=== PATIENT | male | born 1955 | race American Indian/Alaskan Native ===

== ENCOUNTER 2017-11-08 12:14 | Emergency (ER) | payer MEDICARE ==
[~2017-11-08] VITALS: Ht 167.6 cm; Wt 77.1 kg
[~2017-11-08 12:14] MED LIST: BIOFLEX; BP MED; CEPH500 PO; CHLO25B PO; CITA20 PO; CLOB.05TC; CRUTCH3 USE; CYAN500 PO; CYCL10; CYCL10 PO; DICL25ER PO; DIPH50; DOCU100 PO; DOXY100 PO; FLUO20; HYDMOR2; IBUP600; IBUP800; KETO10; KETO10 PO; MELO7.5 PO; MULVITA; NAPR550; NAPR550 PO; NIAC250ER PO; OXYACE5T PO; PENVK250 PO; PENVK500 PO; POTCHL20ER PO; PRAZ1 PO; PRAZ2; PRED20 PO; RANI150 PO; RXCLIN PO; RXPENVK250 PO; SULTRIDS PO; TAMS.4ER PO; TRIA80TC TOP; VARE1; VITB100; VITS; [UNRECOGNIZED DRUG - OTHER]; [UNRECOGNIZED DRUG - OTHER]
== END 2017-11-08 14:10 | disposition home or self-care (01) ==
LOC: ER 12:14
DX: G89.29 Other chronic pain (principal); M54.2 Cervicalgia; Z88.5 Allergy status to narcotic agent; Z79.899 Other long term (current) drug therapy; F43.10 Post-traumatic stress disorder, unspecified; F17.200 Nicotine dependence, unspecified, uncomplicated
CPT/HCPCS: 96372; 99283; J1885

== ENCOUNTER 2017-12-15 09:51 | Emergency (ER) | payer MEDICARE ==
[~2017-12-15] VITALS: Ht 170.2 cm; Wt 74.8 kg
== END 2017-12-15 10:40 | disposition home or self-care (01) ==
LOC: ER 09:51
DX: M25.572 Pain in left ankle and joints of left foot (principal); Z88.5 Allergy status to narcotic agent; Z79.899 Other long term (current) drug therapy; F43.10 Post-traumatic stress disorder, unspecified; F17.200 Nicotine dependence, unspecified, uncomplicated
CPT/HCPCS: 96372; 99283; J1885

== ENCOUNTER 2018-02-17 02:19 | Emergency (ER) | payer MEDICARE ==
[~2018-02-17] VITALS: Ht 170.2 cm; Wt 78.0 kg
[2018-02-17] MEDS ORDERED: ACET500 PO (02:39)
== END 2018-02-17 04:20 | disposition home or self-care (01) ==
LOC: ER 02:19
DX: S16.1XXA Strain of muscle, fascia and tendon at neck level, initial encounter (principal); S43.401A Unspecified sprain of right shoulder joint, initial encounter; S13.4XXA Sprain of ligaments of cervical spine, initial encounter; S00.83XA Contusion of other part of head, initial encounter; V29.9XXA Motorcycle rider (driver) (passenger) injured in unspecified traffic accident, initial encounter; F17.200 Nicotine dependence, unspecified, uncomplicated; Z88.5 Allergy status to narcotic agent; Z79.899 Other long term (current) drug therapy
CPT/HCPCS: 72125; 73030

== ENCOUNTER 2018-02-18 11:21 | Emergency (ER) | payer MEDICARE ==
[~2018-02-18] VITALS: Ht 170.2 cm; Wt 78.0 kg
[~2018-02-18 11:21] MED LIST changes: +ACET500 PO
== END 2018-02-18 12:32 | disposition home or self-care (01) ==
LOC: ER 11:21
DX: S00.81XA Abrasion of other part of head, initial encounter (principal); M54.2 Cervicalgia; M25.511 Pain in right shoulder; F17.200 Nicotine dependence, unspecified, uncomplicated; Z88.5 Allergy status to narcotic agent; V29.9XXA Motorcycle rider (driver) (passenger) injured in unspecified traffic accident, initial encounter
CPT/HCPCS: 96372; 99283; J1885

== ENCOUNTER 2019-02-23 14:43 | Emergency (ER) | payer OTHER ==
[~2019-02-23] VITALS: Ht 167.6 cm; Wt 74.0 kg
[2019-02-23] MEDS ORDERED: DIBU30TO PR (15:18)
[2019-03-25] MEDS ORDERED: Voltaren100 GM TOP (12:22)
[2019-03-25] MEDS ORDERED: HYDCOR2.5C PR (12:22)
[2019-03-25] MEDS ORDERED: VITAMIN B-121000 MCG PO (12:22)
[2019-03-25] MEDS ORDERED: ACET500 PO (12:22)
== END 2019-02-23 15:24 | disposition home or self-care (01) ==
LOC: ER 14:43
DX: K64.5 Perianal venous thrombosis (principal); Z88.5 Allergy status to narcotic agent; F17.200 Nicotine dependence, unspecified, uncomplicated
CPT/HCPCS: 99283

== ENCOUNTER 2019-03-18 13:17 | Emergency (ER) | payer OTHER ==
[~2019-03-18] VITALS: Ht 170.2 cm; Wt 84.4 kg
[~2019-03-18 13:17] MED LIST changes: +DIBU30TO PR
[2019-03-18 14:07] LABS: BASOPHILS ABSOLUTE AUTO 0.06 K/mm3 (0.00-0.23); BASOPHILS PERCENT AUTO 1 % (0-2); EOSINOPHILS ABSOLUTE AUTO 0.29 K/mm3 (0.00-0.68); EOSINOPHILS PERCENT AUTO 4 % (0-6); Hematocrit 46.1 % (37.0-53.0); Hemoglobin 15.6 g/dL (13.5-17.5); IMMATURE GRAN ABSOLUTE AUTO 0.03 K/mm3 (0.00-0.10); IMMATURE GRAN PERCENT AUTO 0 % (0-1); LYMPHOCYTES ABSOLUTE AUTO 1.64 K/mm3 (0.84-5.20); LYMPHOCYTES PERCENT AUTO 22 % (21-46); MONOCYTES ABSOLUTE AUTO 0.64 K/mm3 (0.16-1.47); MONOCYTES PERCENT AUTO 8 % (4-13); Mean Corpuscular HGB 31.5 pg (26.0-34.0); Mean Corpuscular HGB Conc 33.8 g/dL (31.5-36.5); Mean Corpuscular Volume 93 fL (80-100); Mean Platelet Volume 9.7 fL (9.1-12.4); NEUTROPHILS ABSOLUTE AUTO 4.94 K/mm3 (1.96-9.15); NEUTROPHILS PERCENT AUTO 65 % (41-73); Platelet Count 262 K/mm3 (150-400); RDW Coefficient Variation 13.2 % (11.7-14.2); RDW Standard Deviation 44.5 fL (35.1-46.3); Red Blood Cell Count 4.95 M/mm3 (4.30-5.90)
[2019-03-18 14:26] LABS: Alanine Aminotransfer (ALT/SGP 19 U/L (12-78); Albumin, Blood 3.9 g/dL (3.4-5.0); Albumin/Globulin Ratio 1.1 (0.8-1.8); Alk Phos 64 U/L (50-136); Anion Gap 6 mmol/L (6-16); Aspartate Aminotrans (AST/SGOT 16 U/L (12-37); Bilirubin, Total 0.6 mg/dL (0.1-1.0); Blood Urea Nitrogen 17 mg/dL (8-24); CO2, Blood 26 mmol/L (21-32); Calcium, Blood 9.4 mg/dL (8.5-10.1); Chloride, Blood 108 mmol/L (98-108); Creatinine, Blood 0.77 mg/dL (0.60-1.20); Globulin, Blood 3.5 g/dL (2.2-4.0); Glomerular Filtration Rate >60 (60-); Glucose, Blood 100 mg/dL (70-99); Sodium, Blood 140 mmol/L (136-145); Total Protein, Blood 7.4 g/dL (6.4-8.2)
[2019-03-18 16:40] LABS: Source, Urine Clean Catch
[2019-03-18 16:45] LABS: Bilirubin, Urine Neg (Neg); Blood, Urine 2+ (Neg); Glucose Qualitative, Urine Neg (Neg); Ketones, Urine Neg (Neg); Leukocyte Esterase, Urine Neg (Neg); Nitrite, Urine Neg (Neg); Protein, Urine Neg (Neg); Specific Gravity, Urine 1.015 (1.003-1.022); Urobilinogen, Urine NORM (Normal); pH, Urine 6.5 (5.0-8.0)
[2019-03-18 16:58] LABS: Appearance, Urine Clear (Clear); Color, Urine Yellow (P-Yellow)
[2019-03-18 17:00] LABS: Bacteria Not Seen /hpf; Red Blood Cells, Urine 0-2 /hpf (0-2); Squamous Epithelial Cells Not Seen /hpf (Few); White Blood Cells, Urine 0-2 /hpf (0-5)
[2019-03-18] MEDS ORDERED: Tylenol325 MG PO (17:05)
[2019-03-18] MEDS ORDERED: KETO10 PO (17:05)
[2019-03-25] MEDS ORDERED: VITAMIN B-121000 MCG PO (12:22)
[2019-03-25] MEDS ORDERED: ACET500 PO (12:22)
[2019-03-25] MEDS ORDERED: Voltaren100 GM TOP (12:22)
[2019-03-25] MEDS ORDERED: HYDCOR2.5C PR (12:22)
== END 2019-03-18 17:30 | disposition home or self-care (01) ==
LOC: ER 13:17
PROVIDERS: Physician Assistant
DX: K64.4 Residual hemorrhoidal skin tags (principal); Z88.5 Allergy status to narcotic agent; Z79.899 Other long term (current) drug therapy; F17.200 Nicotine dependence, unspecified, uncomplicated
CPT/HCPCS: 36415; 80053; 81001; 83690; 85025; 99283

== ENCOUNTER → 2019-03-20 | Outpatient (CLI) | payer OTHER ==
[~2019-03-20] MED LIST changes: +Bactrim Ds Tab1 EACH PO; +Benadryl Itch28.3 G1 TOP; +GABA100 PO; +HYDCOR2.5C PR; +IBUP800 PO; +Tylenol325 MG PO; +VITAMIN B-121000 MCG PO; +Voltaren100 GM TOP
[2019-03-20 13:40] LABS: Adenovirus F 40/41 Not Detected (NOT DETECT); Astrovirus Not Detected (NOT DETECT); Campylobacter Sp Not Detected (NOT DETECT); Cryptosporidium Not Detected (NOT DETECT); Cyclospora Cayetanensis Not Detected (NOT DETECT); E. Coli O157 Not Detected (NOT DETECT); Entamoeba Histolytica Not Detected (NOT DETECT); Enteroaggregative E. coli-EAEC Not Detected (NOT DETECT); Enteropathogenic E. coli-EPEC Detected (NOT DETECT); Enterotoxigenic E. coli-ETEC Not Detected (NOT DETECT); Giardia Lamblia Not Detected (NOT DETECT); Norovirus GI/GII Not Detected (NOT DETECT); Plesiomonas Shigelloides Not Detected (NOT DETECT); Rotavirus A Not Detected (NOT DETECT); Salmonella Sp Not Detected (NOT DETECT); Sapovirus Not Detected (NOT DETECT); Shiga Toxin-prod E. coli-STEC Not Detected (NOT DETECT); Shigella/Enteroin E. coli-EIEC Not Detected (NOT DETECT); Vibrio Cholerae Not Detected (NOT DETECT); Vibrio Sp Not Detected (NOT DETECT); Yersinia Enterocolitica Not Detected (NOT DETECT)
== END ==
LOC: LAB SHORT 12:08 → LAB 12:08
PROVIDERS: Physician Assistant
DX: R19.7 Diarrhea, unspecified (principal)
CPT/HCPCS: 0097U

== ENCOUNTER 2019-04-01 16:18 | Emergency (ER) | payer OTHER ==
[~2019-04-01] VITALS: Ht 170.2 cm; Wt 76.2 kg
[~2019-04-01 16:18] MED LIST changes: -Bactrim Ds Tab1 EACH PO; -Benadryl Itch28.3 G1 TOP; -GABA100 PO; -IBUP800 PO
[2019-04-01] MEDS ORDERED: GABA100 PO (16:26)
[2019-04-01] MEDS ORDERED: IBUP800 PO (16:26)
[2019-04-01] MEDS ORDERED: Benadryl Itch28.3 G1 TOP (16:58)
== END 2019-04-01 17:11 | disposition home or self-care (01) ==
LOC: ER 16:18
DX: L25.9 Unspecified contact dermatitis, unspecified cause (principal); K64.9 Unspecified hemorrhoids; Z88.5 Allergy status to narcotic agent; Z79.899 Other long term (current) drug therapy; F43.10 Post-traumatic stress disorder, unspecified; F17.200 Nicotine dependence, unspecified, uncomplicated
CPT/HCPCS: 96372; 99282-25; J3301

== ENCOUNTER 2019-04-28 11:46 | Observation (INO) | payer OTHER ==
[~2019-04-28] VITALS: Ht 170.2 cm; Wt 73.9 kg
[~2019-04-28 11:46] MED LIST changes: +Benadryl Itch28.3 G1 TOP; +GABA100 PO; +IBUP800 PO
[2019-04-28 12:38] LABS: BASOPHILS ABSOLUTE AUTO 0.05 K/mm3 (0.00-0.23); BASOPHILS PERCENT AUTO 0 % (0-2); EOSINOPHILS ABSOLUTE AUTO 0.39 K/mm3 (0.00-0.68); EOSINOPHILS PERCENT AUTO 3 % (0-6); Hematocrit 45.3 % (37.0-53.0); Hemoglobin 15.3 g/dL (13.5-17.5); IMMATURE GRAN ABSOLUTE AUTO 0.06 K/mm3 (0.00-0.10); IMMATURE GRAN PERCENT AUTO 1 % (0-1); LYMPHOCYTES ABSOLUTE AUTO 1.25 K/mm3 (0.84-5.20); LYMPHOCYTES PERCENT AUTO 10 % (21-46); MONOCYTES ABSOLUTE AUTO 1.34 K/mm3 (0.16-1.47); MONOCYTES PERCENT AUTO 11 % (4-13); Mean Corpuscular HGB 31.9 pg (26.0-34.0); Mean Corpuscular HGB Conc 33.8 g/dL (31.5-36.5); Mean Corpuscular Volume 95 fL (80-100); Mean Platelet Volume 9.9 fL (9.1-12.4); NEUTROPHILS ABSOLUTE AUTO 9.17 K/mm3 (1.96-9.15); NEUTROPHILS PERCENT AUTO 75 % (41-73); Platelet Count 220 K/mm3 (150-400); RDW Standard Deviation 45.2 fL (35.1-46.3); Red Blood Cell Count 4.79 M/mm3 (4.30-5.90); White Blood Cell Count 12.26 K/mm3 (4.00-11.30)
[2019-04-28 12:56] LABS: Alanine Aminotransfer (ALT/SGP 19 U/L (12-78); Albumin, Blood 3.5 g/dL (3.4-5.0); Albumin/Globulin Ratio 0.9 (0.8-1.8); Alk Phos 65 U/L (50-136); Anion Gap 6 mmol/L (6-16); Aspartate Aminotrans (AST/SGOT 18 U/L (12-37); Bilirubin, Total 0.6 mg/dL (0.1-1.0); Blood Urea Nitrogen 17 mg/dL (8-24); Bun/Creatinine Ratio 23.9 (12.0-20.0); CO2, Blood 25 mmol/L (21-32); Calcium, Blood 8.7 mg/dL (8.5-10.1); Chloride, Blood 107 mmol/L (98-108); Creatinine, Blood 0.71 mg/dL (0.60-1.20); Globulin, Blood 3.9 g/dL (2.2-4.0); Glomerular Filtration Rate >60 (60-); Glucose, Blood 100 mg/dL (70-99); Potassium, Blood 4.1 mmol/L (3.5-5.5); Sodium, Blood 138 mmol/L (136-145); Total Protein, Blood 7.4 g/dL (6.4-8.2)
--- NOTE | 2019-04-28 19:36 | NUR ---
CARE ASSUMPTION PT A&O X4. VSS. PT C/O "DULL ACHE CONSTANT" R HIP PAIN. R HIP SURGICAL SITE DRESSED W/ GAUZE AND SURGICAL TAPE W/ SMALL AMOUNT DRY RED DISCHARGE. PT STATES 28 YRS SOBER, REQUESTING NO NARCOTICS BE GIVEN. WILL MEDICATE PER EMAR/PT REQUEST. PT LUNG SOUNDS CLEAR. SPO2 > 92% ON RA. PT REPORTS TOLERATING AMBULATION WELL POST-OP. WILL CONTINUE TO MONITOR AND PROVIDE CARE.
--- NOTE | 2019-04-29 07:27 | NUR ---
SHIFT SUMMARY PT A&O X4. VSS. MEDICATING R HIP PAIN PER EMAR/PT REQUEST. PT ABLE TO SLEEP MAJORITY OF SHIFT. PT STATES EAGERNESS TO DC HOME. NO CHANGES THIS SHIFT. REPORT GIVEN TO DAY SHIFT RN.
[2019-04-29] MEDS ORDERED: Bactrim Ds Tab1 EACH PO (14:38)
[2019-04-29] MEDS ORDERED: KETO10 PO (14:38)
--- NOTE | 2019-04-29 15:26 | NUR ---
DISCHARGE PT GIVEN SCRIPTS. F/U APOINTMENT WITH DR TERRY MADE BY HIS OFFICE. DRESSINGS GIVEN FOR ANY DRAINAGE. UNDERSTANDS REASONS TO CALL
== END 2019-04-29 15:19 | disposition home or self-care (01) ==
LOC: ER 11:46 → SURS 11:47
PROVIDERS: Physician Assistant; ADMIT Surgery
PROC: 0H98XZZ Drainage of Buttock Skin, External Approach (ICD-10-PCS; principal; 2019-04-28 14:30)
DX: L02.31 Cutaneous abscess of buttock (principal); F43.10 Post-traumatic stress disorder, unspecified; Z87.891 Personal history of nicotine dependence; Z79.899 Other long term (current) drug therapy; Z88.5 Allergy status to narcotic agent; Z88.2 Allergy status to sulfonamides
CPT/HCPCS: 36415; 72193; 80053; 85025; 87070; 87075; 87077; 87147; 87186; 87205; 96365; 96374; 96376; 99284-25; A9270; G0378; J1100; J1885; J2250; J2405; J2543; J2704; J3010; J7050; J7120; Q9967

== ENCOUNTER → 2019-10-24 | Outpatient (CLI) | payer MEDICARE ==
[~2019-10-24] MED LIST changes: +ALEVE220 MG; +Bactrim Ds Tab1 EACH PO; +DOXYCYCLINE HY100 M1 PO; +Flomax0.4 MG PO; +HYDHCL25 PO; +Prednisone20 MG PO
[2019-10-24 13:56] LABS: BASOPHILS ABSOLUTE AUTO 0.04 K/mm3 (0.00-0.23); BASOPHILS PERCENT AUTO 1 % (0-2); EOSINOPHILS PERCENT AUTO 7 % (0-6); Hemoglobin 15.9 g/dL (13.5-17.5); IMMATURE GRAN ABSOLUTE AUTO 0.03 K/mm3 (0.00-0.10); IMMATURE GRAN PERCENT AUTO 0 % (0-1); LYMPHOCYTES ABSOLUTE AUTO 1.13 K/mm3 (0.84-5.20); LYMPHOCYTES PERCENT AUTO 16 % (21-46); MONOCYTES ABSOLUTE AUTO 0.71 K/mm3 (0.16-1.47); MONOCYTES PERCENT AUTO 10 % (4-13); Mean Corpuscular HGB 29.9 pg (26.0-34.0); Mean Corpuscular HGB Conc 33.8 g/dL (31.5-36.5); Mean Corpuscular Volume 88 fL (80-100); Mean Platelet Volume 9.9 fL (9.1-12.4); NEUTROPHILS PERCENT AUTO 66 % (41-73); Platelet Count 253 K/mm3 (150-400); RDW Coefficient Variation 13.4 % (11.7-14.2); RDW Standard Deviation 42.8 fL (35.1-46.3); Red Blood Cell Count 5.32 M/mm3 (4.30-5.90); White Blood Cell Count 7.01 K/mm3 (4.00-11.30)
[2019-10-24 14:06] LABS: Alanine Aminotransfer (ALT/SGP 18 U/L (12-78); Albumin, Blood 3.9 g/dL (3.4-5.0); Alk Phos 74 U/L (40-126); Anion Gap 10 mmol/L (6-16); Aspartate Aminotrans (AST/SGOT 30 U/L (12-37); Bilirubin, Total 0.7 mg/dL (0.1-1.0); Blood Urea Nitrogen 15 mg/dL (8-24); Bun/Creatinine Ratio 16.7 (12.0-20.0); CO2, Blood 23 mmol/L (21-32); Calcium, Blood 8.4 mg/dL (8.5-10.1); Chloride, Blood 104 mmol/L (98-108); Globulin, Blood 3.8 g/dL (2.2-4.0); Glomerular Filtration Rate >60 (60-); Glucose, Blood 119 mg/dL (70-99); Potassium, Blood 4.4 mmol/L (3.5-5.5); Sodium, Blood 137 mmol/L (136-145); Total Protein, Blood 7.7 g/dL (6.4-8.2)
[2019-10-26 09:06] LABS: HIV SCREEN 4TH GENERATION WRFX Non Reactive (Non Reactive)
== END ==
LOC: LAB EV 13:51 → LAB SHORT 13:51
PROVIDERS: Nurse Practitioner
DX: L50.9 Urticaria, unspecified (principal)
CPT/HCPCS: 80053; 85025; 86592; 87389

== ENCOUNTER 2019-10-25 14:08 | Emergency (ER) | payer MEDICARE ==
[~2019-10-25] VITALS: Ht 170.2 cm; Wt 86.6 kg
[~2019-10-25 14:08] MED LIST changes: -ALEVE220 MG; -DOXYCYCLINE HY100 M1 PO; -Flomax0.4 MG PO; -HYDHCL25 PO; -Prednisone20 MG PO
[2019-10-25] MEDS ORDERED: Flomax0.4 MG PO (14:27)
[2019-10-25] MEDS ORDERED: DOXYCYCLINE HY100 M1 PO (14:27)
[2019-10-25] MEDS ORDERED: ALEVE220 MG (14:27)
[2019-10-25] MEDS ORDERED: Prednisone20 MG PO (14:48)
[2019-10-25] MEDS ORDERED: HYDHCL25 PO (14:48)
== END 2019-10-25 15:55 | disposition home or self-care (01) ==
LOC: ER 14:08
DX: L50.0 Allergic urticaria (principal); L27.0 Generalized skin eruption due to drugs and medicaments taken internally; T44.6X5A Adverse effect of alpha-adrenoreceptor antagonists, initial encounter; Z88.2 Allergy status to sulfonamides; Z88.5 Allergy status to narcotic agent; Z88.8 Allergy status to other drugs, medicaments and biological substances; Z79.899 Other long term (current) drug therapy; Z87.891 Personal history of nicotine dependence
CPT/HCPCS: 96372; 99282; J1100; J1200

== ENCOUNTER 2020-01-03 16:28 | Emergency (ER) | payer MEDICARE ==
[~2020-01-03] VITALS: Ht 170.2 cm; Wt 86.6 kg
[~2020-01-03 16:28] MED LIST changes: +ALEVE220 MG; +Betamethasone V15 GM TOP; +DOXYCYCLINE HY100 M1 PO; +Flomax0.4 MG PO; +HYDHCL25 PO; +Prednisone20 MG PO; +Voltaren100 GM
[2020-01-03 16:49] LABS: Source, Urine Clean Catch
[2020-01-03 16:57] LABS: Bilirubin, Urine Neg (Neg); Blood, Urine 5+ (Neg); Glucose Qualitative, Urine Neg (Neg); Ketones, Urine Neg (Neg); Leukocyte Esterase, Urine 1+ (Neg); Nitrite, Urine Neg (Neg); Protein, Urine Neg (Neg); Specific Gravity, Urine 1.015 (1.003-1.022); Urobilinogen, Urine NORM (Normal)
[2020-01-03 17:04] LABS: Appearance, Urine Hazy (Clear); Color, Urine Pale Yellow (P-Yellow)
[2020-01-03 17:05] LABS: Bacteria Rare /hpf; Red Blood Cells, Urine 50-100 /hpf (0-2); Squamous Epithelial Cells Not Seen /hpf (Few); White Blood Cells, Urine 0-2 /hpf (0-5)
[2020-01-03] MEDS ORDERED: Cipro500 MG PO (17:45)
== END 2020-01-03 19:08 | disposition home or self-care (01) ==
LOC: ER 16:28
PROVIDERS: Emergency Medicine
DX: R31.9 Hematuria, unspecified (principal); N40.0 Benign prostatic hyperplasia without lower urinary tract symptoms; Z88.2 Allergy status to sulfonamides; Z88.5 Allergy status to narcotic agent; Z88.8 Allergy status to other drugs, medicaments and biological substances; Z87.891 Personal history of nicotine dependence
CPT/HCPCS: 81001; 87086; 99283

== ENCOUNTER → 2020-02-03 | Outpatient (CLI) | payer MEDICARE ==
[~2020-02-03] MED LIST changes: +Cipro500 MG PO
== END | disposition home or self-care (01) ==
LOC: LAB SHORT 12:09 → PLD 12:09
DX: L28.1 Prurigo nodularis (principal)
CPT/HCPCS: 88305; 88312

== ENCOUNTER 2020-02-13 05:54 | Day surgery (SDC) | payer MEDICARE ==
[~2020-02-13] VITALS: Ht 170.2 cm; Wt 85.1 kg
[2020-02-13] MEDS ORDERED: NAPR220 PO (06:37)
[2020-02-13] MEDS ORDERED: TYLENOL PM PO (06:37)
[2020-02-13] MEDS ORDERED: TRIA15CR3 TOP (06:38)
[2020-02-13] MEDS ORDERED: Triamcinolone A15 G3 TOP (06:39)
--- NOTE | 2020-02-13 06:46 | NUR ---
History, Chart, Medications and Allergies reviewed before start of procedure. Patient confirms NPO status and agrees with scheduled surgery. Patient States Post-Procedure ride home has been arranged with his brother.
--- NOTE | 2020-02-13 07:00 | NUR ---
PATIENT STATES HE LEFT HIS DENTURES AT HOME.
--- NOTE | 2020-02-13 09:33 | NUR ---
Discharge instructions reviewed with patient. Patient verbalizes understanding. Copy given to patient to take home. Dressing to procedure site clean, dry, intact with no visible drainage, swelling, erythema or bruising noted. Patient States Post-Procedure ride home has been arranged. Discharged via wheelchair to private car for ride home. HARD COPY RX GIVEN FOR TRAMADOL.
== END 2020-02-13 09:25 | disposition home or self-care (01) ==
LOC: ORSCMMR 05:54 → ORD 07:30 → ORSCMMR 09:25
PROVIDERS: Surgery
PROC: 0WUF0JZ Supplement Abdominal Wall with Synthetic Substitute, Open Approach (ICD-10-PCS; principal; 2020-02-13 07:30)
DX: K42.9 Umbilical hernia without obstruction or gangrene (principal); E78.5 Hyperlipidemia, unspecified; I25.10 Atherosclerotic heart disease of native coronary artery without angina pectoris; K21.9 Gastro-esophageal reflux disease without esophagitis; Z79.899 Other long term (current) drug therapy
CPT/HCPCS: C1781; J0690; J1100; J1885; J2250; J2405; J2704; J3010; J7120

== ENCOUNTER 2020-04-20 14:17 | Emergency (ER) | payer MEDICARE ==
[~2020-04-20] VITALS: Ht 170.2 cm; Wt 85.3 kg
[~2020-04-20 14:17] MED LIST changes: +NAPR220 PO; +TRIA15CR3 TOP; +TYLENOL PM PO; +Triamcinolone A15 G3 TOP
[2020-04-20 15:40] LABS: BASOPHILS ABSOLUTE AUTO 0.07 K/mm3 (0.00-0.23); BASOPHILS PERCENT AUTO 1 % (0-2); EOSINOPHILS ABSOLUTE AUTO 0.38 K/mm3 (0.00-0.68); EOSINOPHILS PERCENT AUTO 6 % (0-6); Hematocrit 40.4 % (37.0-53.0); Hemoglobin 12.6 g/dL (13.5-17.5); IMMATURE GRAN ABSOLUTE AUTO 0.02 K/mm3 (0.00-0.10); IMMATURE GRAN PERCENT AUTO 0 % (0-1); LYMPHOCYTES ABSOLUTE AUTO 1.51 K/mm3 (0.84-5.20); LYMPHOCYTES PERCENT AUTO 24 % (21-46); MONOCYTES ABSOLUTE AUTO 0.56 K/mm3 (0.16-1.47); MONOCYTES PERCENT AUTO 9 % (4-13); Mean Corpuscular HGB 27.9 pg (26.0-34.0); Mean Corpuscular HGB Conc 31.2 g/dL (31.5-36.5); Mean Corpuscular Volume 90 fL (80-100); Mean Platelet Volume 9.6 fL (9.1-12.4); NEUTROPHILS ABSOLUTE AUTO 3.78 K/mm3 (1.96-9.15); NEUTROPHILS PERCENT AUTO 60 % (41-73); Platelet Count 339 K/mm3 (150-400); RDW Coefficient Variation 13.4 % (11.7-14.2); RDW Standard Deviation 43.9 fL (35.1-46.3); Red Blood Cell Count 4.51 M/mm3 (4.30-5.90); White Blood Cell Count 6.32 K/mm3 (4.00-11.30)
[2020-04-20] MEDS ORDERED: DOXE10 PO (15:52)
[2020-04-20 16:00] LABS: Alanine Aminotransfer (ALT/SGP 19 U/L (12-78); Albumin, Blood 3.7 g/dL (3.4-5.0); Alk Phos 71 U/L (50-136); Anion Gap 3 mmol/L (6-16); Aspartate Aminotrans (AST/SGOT 21 U/L (12-37); Bilirubin, Total 0.3 mg/dL (0.1-1.0); Blood Urea Nitrogen 16 mg/dL (8-24); Bun/Creatinine Ratio 18.7 (12.0-20.0); CO2, Blood 27 mmol/L (21-32); Calcium, Blood 8.5 mg/dL (8.5-10.1); Chloride, Blood 110 mmol/L (98-108); Creatinine, Blood 0.86 mg/dL (0.60-1.20); Globulin, Blood 3.8 g/dL (2.2-4.0); Glomerular Filtration Rate >60 (60-); Glucose, Blood 96 mg/dL (70-99); Sodium, Blood 140 mmol/L (136-145); Total Protein, Blood 7.5 g/dL (6.4-8.2)
[2020-04-20 16:17] LABS: Source, Urine Clean Catch
[2020-04-20 16:56] LABS: Appearance, Urine Hazy (Clear); Bilirubin, Urine Neg (Neg); Blood, Urine 5+ (Neg); Color, Urine Yellow (P-Yellow); Glucose Qualitative, Urine Neg (Neg); Ketones, Urine Neg (Neg); Leukocyte Esterase, Urine 3+ (Neg); Nitrite, Urine Neg (Neg); Protein, Urine 3+ (Neg); Urobilinogen, Urine NORM (Normal)
[2020-04-20 17:20] LABS: Bacteria Mod /hpf; Red Blood Cells, Urine TNTC /hpf (0-2); Squamous Epithelial Cells Rare /hpf (Few); White Blood Cells, Urine TNTC /hpf (0-5)
[2020-04-20] MEDS ORDERED: Cipro500 MG PO (17:35)
== END 2020-04-20 18:01 | disposition home or self-care (01) ==
LOC: ER 14:17
PROVIDERS: Physician Assistant
DX: N39.0 Urinary tract infection, site not specified (principal); R31.9 Hematuria, unspecified; Z88.2 Allergy status to sulfonamides; Z88.5 Allergy status to narcotic agent; Z88.8 Allergy status to other drugs, medicaments and biological substances; Z79.899 Other long term (current) drug therapy; Z79.2 Long term (current) use of antibiotics; F43.10 Post-traumatic stress disorder, unspecified; Z87.891 Personal history of nicotine dependence
CPT/HCPCS: 80053; 81001; 85025; 87077; 87086; 87147; 87186; 99283

== ENCOUNTER 2021-08-04 13:08 | Emergency (ER) | payer MEDICARE ==
[~2021-08-04] VITALS: Ht 167.6 cm; Wt 73.5 kg
[~2021-08-04 13:08] MED LIST changes: +DOXE10 PO
[2021-08-04] MEDS ORDERED: KETO10 PO (15:26)
== END 2021-08-04 15:43 | disposition home or self-care (01) ==
LOC: ER 13:08
DX: M19.012 Primary osteoarthritis, left shoulder (principal); Z87.891 Personal history of nicotine dependence
CPT/HCPCS: 73030; 96372; 99283-25; A9270; J1885

== ENCOUNTER 2021-08-20 12:45 | Emergency (ER) | payer MEDICARE ==
[~2021-08-20] VITALS: Ht 170.2 cm; Wt 75.3 kg
[2021-08-20] MEDS ORDERED: CYCL10 PO (14:44)
== END 2021-08-20 14:54 | disposition home or self-care (01) ==
LOC: ER 12:45
DX: M25.512 Pain in left shoulder (principal); G89.29 Other chronic pain; Z88.2 Allergy status to sulfonamides; Z88.5 Allergy status to narcotic agent; Z88.8 Allergy status to other drugs, medicaments and biological substances; Z79.899 Other long term (current) drug therapy; Z87.891 Personal history of nicotine dependence
CPT/HCPCS: 99283; A9270

== ENCOUNTER → 2021-10-13 | Outpatient (CLI) | payer MEDICARE | END | disposition home or self-care (01) | LOC: LAB 07:20 → LAB SHORT 07:20 | DX: L98.419 Non-pressure chronic ulcer of buttock with unspecified severity (principal) | CPT/HCPCS: 88305; 88312 ==

== ENCOUNTER → 2021-11-24 | Outpatient (CLI) | payer MEDICARE ==
[~2021-11-24] MED LIST changes: +CODACE30 PO; +IBU800 M1 PO; +MORP15ER PO; +MORPHINE SULFAT15 M1 PO; +Norco 10-325 T1 EACH PO; +ONDA4ODT MM; +OXYACE7.5T PO; +Silvadene20 GM TOP; +[UNRECOGNIZED DRUG - CODE] PO
[2021-11-29 04:09] LABS: HSV-1 DNA Negative (Negative); HSV-2 DNA Negative (Negative)
== END | disposition home or self-care (01) ==
LOC: LAB SHORT 10:33 → LAB 10:33
PROVIDERS: Dermatology
DX: B00.9 Herpesviral infection, unspecified (principal)
CPT/HCPCS: 87529

== ENCOUNTER 2021-11-29 05:02 | Day surgery (SDC) | payer MEDICARE ==
[~2021-11-29 05:02] MED LIST changes: -CODACE30 PO; -IBU800 M1 PO; -MORP15ER PO; -MORPHINE SULFAT15 M1 PO; -Norco 10-325 T1 EACH PO; -ONDA4ODT MM; -OXYACE7.5T PO; -Silvadene20 GM TOP; -[UNRECOGNIZED DRUG - CODE] PO
[2021-12-31] MEDS ORDERED: OXYACE7.5T PO (10:02)
== END 2021-11-29 23:50 | disposition home or self-care (01) ==
LOC: WOUND 05:02
DX: L98.412 Non-pressure chronic ulcer of buttock with fat layer exposed (principal); L28.1 Prurigo nodularis; L89.323 Pressure ulcer of left buttock, stage 3; F17.200 Nicotine dependence, unspecified, uncomplicated; S31.829A Unspecified open wound of left buttock, initial encounter; S31.819A Unspecified open wound of right buttock, initial encounter; Z88.2 Allergy status to sulfonamides; Z88.5 Allergy status to narcotic agent; Z88.8 Allergy status to other drugs, medicaments and biological substances; Z79.899 Other long term (current) drug therapy; Z87.891 Personal history of nicotine dependence; X58.XXXA Exposure to other specified factors, initial encounter
CPT/HCPCS: 99283; A9270; G0463

== ENCOUNTER 2021-12-25 12:52 | Emergency (ER) | payer MEDICARE ==
[~2021-12-25] VITALS: Ht 170.2 cm; Wt 78.9 kg
[2021-12-25] MEDS ORDERED: CODACE30 PO (13:31)
== END 2021-12-25 13:39 | disposition home or self-care (01) ==
LOC: ER 12:52
DX: L98.419 Non-pressure chronic ulcer of buttock with unspecified severity (principal); Z88.2 Allergy status to sulfonamides; Z88.5 Allergy status to narcotic agent; Z88.8 Allergy status to other drugs, medicaments and biological substances; Z79.899 Other long term (current) drug therapy; F17.210 Nicotine dependence, cigarettes, uncomplicated
CPT/HCPCS: 96372; 99282-25; J1885

== ENCOUNTER 2021-12-28 11:54 | Emergency (ER) | payer MEDICARE ==
[~2021-12-28] VITALS: Ht 170.2 cm; Wt 78.9 kg
[~2021-12-28 11:54] MED LIST changes: +CODACE30 PO
[2021-12-28 13:31] LABS: BASOPHILS ABSOLUTE AUTO 0.02 K/mm3 (0.00-0.23); BASOPHILS PERCENT AUTO 0 % (0-2); EOSINOPHILS PERCENT AUTO 0 % (0-6); Hematocrit 43.8 % (37.0-53.0); Hemoglobin 14.5 g/dL (13.5-17.5); IMMATURE GRAN ABSOLUTE AUTO 0.11 K/mm3 (0.00-0.10); IMMATURE GRAN PERCENT AUTO 1 % (0-1); LYMPHOCYTES ABSOLUTE AUTO 0.29 K/mm3 (0.84-5.20); LYMPHOCYTES PERCENT AUTO 2 % (21-46); MONOCYTES ABSOLUTE AUTO 0.33 K/mm3 (0.16-1.47); MONOCYTES PERCENT AUTO 3 % (4-13); Mean Corpuscular HGB 30.9 pg (26.0-34.0); Mean Corpuscular HGB Conc 33.1 g/dL (31.5-36.5); Mean Corpuscular Volume 93 fL (80-100); Mean Platelet Volume 9.2 fL (9.1-12.4); NEUTROPHILS ABSOLUTE AUTO 11.82 K/mm3 (1.96-9.15); NEUTROPHILS PERCENT AUTO 94 % (41-73); Platelet Count 260 K/mm3 (150-400); RDW Coefficient Variation 15.7 % (11.7-14.2); RDW Standard Deviation 53.1 fL (35.1-46.3); Red Blood Cell Count 4.69 M/mm3 (4.30-5.90); White Blood Cell Count 12.57 K/mm3 (4.00-11.30)
[2021-12-28 13:50] LABS: Alanine Aminotransfer (ALT/SGP 18 U/L (12-78); Albumin, Blood 3.4 g/dL (3.4-5.0); Albumin/Globulin Ratio 1.1 (0.8-1.8); Alk Phos 68 U/L (50-136); Anion Gap 7 mmol/L (6-16); Aspartate Aminotrans (AST/SGOT 16 U/L (12-37); Bilirubin, Total 0.3 mg/dL (0.1-1.0); Blood Urea Nitrogen 16 mg/dL (8-24); Bun/Creatinine Ratio 18.7 (12.0-20.0); CO2, Blood 25 mmol/L (21-32); Chloride, Blood 108 mmol/L (98-108); Creatinine, Blood 0.86 mg/dL (0.60-1.20); Globulin, Blood 3.1 g/dL (2.2-4.0); Glomerular Filtration Rate >60 (60-); Glucose, Blood 131 mg/dL (70-99); Potassium, Blood 4.4 mmol/L (3.5-5.5); Sodium, Blood 140 mmol/L (136-145); Total Protein, Blood 6.5 g/dL (6.4-8.2)
[2021-12-28] MEDS ORDERED: Norco 10-325 T1 EACH PO (15:23)
[2021-12-28] MEDS ORDERED: Silvadene20 GM TOP (16:07)
[2021-12-31] MEDS ORDERED: OXYACE7.5T PO (10:02)
== END 2021-12-28 17:14 | disposition home or self-care (01) ==
LOC: ER 11:54
PROVIDERS: Physician Assistant
DX: L08.9 Local infection of the skin and subcutaneous tissue, unspecified (principal); B96.89 Other specified bacterial agents as the cause of diseases classified elsewhere; F17.210 Nicotine dependence, cigarettes, uncomplicated; Z88.2 Allergy status to sulfonamides; Z88.5 Allergy status to narcotic agent; Z79.899 Other long term (current) drug therapy
CPT/HCPCS: 36415; 80053; 85025; 96374; 96375; 99283-25; J1885; J3010

== ENCOUNTER 2022-01-23 09:35 | Emergency (ER) | payer MEDICARE ==
[~2022-01-23] VITALS: Ht 170.2 cm; Wt 78.9 kg
[~2022-01-23 09:35] MED LIST changes: +Norco 10-325 T1 EACH PO; +OXYACE7.5T PO; +Silvadene20 GM TOP
[2022-01-23 10:33] LABS: BASOPHILS ABSOLUTE AUTO 0.05 K/mm3 (0.00-0.23); BASOPHILS PERCENT AUTO 1 % (0-2); EOSINOPHILS ABSOLUTE AUTO 0.06 K/mm3 (0.00-0.68); EOSINOPHILS PERCENT AUTO 1 % (0-6); Hematocrit 48.3 % (37.0-53.0); IMMATURE GRAN PERCENT AUTO 1 % (0-1); LYMPHOCYTES ABSOLUTE AUTO 0.79 K/mm3 (0.84-5.20); LYMPHOCYTES PERCENT AUTO 9 % (21-46); MONOCYTES ABSOLUTE AUTO 0.67 K/mm3 (0.16-1.47); MONOCYTES PERCENT AUTO 8 % (4-13); Mean Corpuscular HGB 31.4 pg (26.0-34.0); Mean Corpuscular HGB Conc 33.1 g/dL (31.5-36.5); Mean Corpuscular Volume 95 fL (80-100); Mean Platelet Volume 8.7 fL (9.1-12.4); NEUTROPHILS ABSOLUTE AUTO 7.21 K/mm3 (1.96-9.15); NEUTROPHILS PERCENT AUTO 81 % (41-73); Platelet Count 205 K/mm3 (150-400); RDW Coefficient Variation 15.7 % (11.7-14.2); Red Blood Cell Count 5.09 M/mm3 (4.30-5.90); White Blood Cell Count 8.88 K/mm3 (4.00-11.30)
[2022-01-23 10:41] LABS: Anion Gap 5 mmol/L (6-16); Blood Urea Nitrogen 14 mg/dL (8-24); Bun/Creatinine Ratio 16.8 (12.0-20.0); CO2, Blood 25 mmol/L (21-32); Chloride, Blood 110 mmol/L (98-108); Creatinine, Blood 0.83 mg/dL (0.60-1.20); Glomerular Filtration Rate >60 (60-); Glucose, Blood 97 mg/dL (70-99); Sodium, Blood 140 mmol/L (136-145)
[2022-01-23] MEDS ORDERED: DOXYCYCLINE HY100 M1 PO (10:49)
[2022-01-23] MEDS ORDERED: IBU800 M1 PO (10:49)
[2022-01-23] MEDS ORDERED: [UNRECOGNIZED DRUG - CODE] PO (10:50)
[2022-01-23] MEDS ORDERED: PRED20 PO (10:50)
[2022-01-23] MEDS ORDERED: MORP15ER PO (11:52)
[2022-01-23] MEDS ORDERED: ONDA4ODT MM (11:52)
[2022-01-24] MEDS ORDERED: MORPHINE SULFAT15 M1 PO (18:53)
== END 2022-01-23 12:29 | disposition home or self-care (01) ==
LOC: ER 09:35
PROVIDERS: Student in an Organized Health Care Education/Training Program
DX: L88 Pyoderma gangrenosum (principal); L25.9 Unspecified contact dermatitis, unspecified cause; Z88.2 Allergy status to sulfonamides; Z88.5 Allergy status to narcotic agent; Z88.8 Allergy status to other drugs, medicaments and biological substances; F17.210 Nicotine dependence, cigarettes, uncomplicated; Z91.14 Patient's other noncompliance with medication regimen
CPT/HCPCS: 36415; 72193; 80048; 85025; 85651; 86140; J1170; J1885; Q9967

== ENCOUNTER 2022-01-24 17:21 | Emergency (ER) | payer MEDICARE ==
[~2022-01-24] VITALS: Ht 170.2 cm; Wt 78.9 kg
[~2022-01-24 17:21] MED LIST changes: +IBU800 M1 PO; +MORP15ER PO; +ONDA4ODT MM; +[UNRECOGNIZED DRUG - CODE] PO
[2022-01-24] MEDS ORDERED: MORPHINE SULFAT15 M1 PO (18:53)
== END 2022-01-24 18:51 | disposition home or self-care (01) ==
LOC: ER 17:21
DX: R21 Rash and other nonspecific skin eruption (principal); F17.210 Nicotine dependence, cigarettes, uncomplicated; Z79.899 Other long term (current) drug therapy; Z88.5 Allergy status to narcotic agent; Z88.2 Allergy status to sulfonamides; Z88.8 Allergy status to other drugs, medicaments and biological substances
CPT/HCPCS: 36415

== ENCOUNTER 2022-02-16 09:39 | Emergency (ER) | payer MEDICARE, OTHER ==
[~2022-02-16] VITALS: Ht 167.6 cm; Wt 72.6 kg
[~2022-02-16 09:39] MED LIST changes: +MORPHINE SULFAT15 M1 PO
== END 2022-02-16 11:10 | disposition left against medical advice (07) ==
LOC: ER 09:39
DX: R21 Rash and other nonspecific skin eruption (principal); Z53.21 Procedure and treatment not carried out due to patient leaving prior to being seen by health care provider
CPT/HCPCS: 99283

== ENCOUNTER 2022-07-28 22:52 | Emergency (ER) | payer MEDICARE, OTHER ==
[~2022-07-28] VITALS: Ht 167.6 cm; Wt 74.4 kg
[2022-07-29 00:58] LABS: BASOPHILS ABSOLUTE AUTO 0.07 K/mm3 (0.00-0.23); BASOPHILS PERCENT AUTO 1 % (0-2); EOSINOPHILS ABSOLUTE AUTO 0.11 K/mm3 (0.00-0.68); EOSINOPHILS PERCENT AUTO 2 % (0-6); Hematocrit 41.2 % (37.0-53.0); Hemoglobin 13.8 g/dL (13.5-17.5); IMMATURE GRAN ABSOLUTE AUTO 0.03 K/mm3 (0.00-0.10); IMMATURE GRAN PERCENT AUTO 0 % (0-1); LYMPHOCYTES ABSOLUTE AUTO 0.95 K/mm3 (0.84-5.20); LYMPHOCYTES PERCENT AUTO 13 % (21-46); MONOCYTES ABSOLUTE AUTO 0.69 K/mm3 (0.16-1.47); MONOCYTES PERCENT AUTO 9 % (4-13); Mean Corpuscular HGB 29.8 pg (26.0-34.0); Mean Corpuscular HGB Conc 33.5 g/dL (31.5-36.5); Mean Corpuscular Volume 89 fL (80-100); Mean Platelet Volume 9.4 fL (9.1-12.4); NEUTROPHILS ABSOLUTE AUTO 5.56 K/mm3 (1.96-9.15); NEUTROPHILS PERCENT AUTO 75 % (41-73); Platelet Count 212 K/mm3 (150-400); RDW Coefficient Variation 13.5 % (11.7-14.2); RDW Standard Deviation 44.5 fL (35.1-46.3); Red Blood Cell Count 4.63 M/mm3 (4.30-5.90); White Blood Cell Count 7.41 K/mm3 (4.00-11.30)
[2022-07-29 00:59] LABS: Source, Urine Clean Catch
[2022-07-29 01:03] LABS: Bilirubin, Urine Neg (Neg); Blood, Urine 3+ (Neg); Glucose Qualitative, Urine Neg (Neg); Ketones, Urine Neg (Neg); Leukocyte Esterase, Urine Neg (Neg); Nitrite, Urine Neg (Neg); Protein, Urine Neg (Neg); Urobilinogen, Urine NORM (Normal)
[2022-07-29 01:04] LABS: Appearance, Urine Clear (Clear); Color, Urine Pale Yellow (P-Yellow)
[2022-07-29 01:09] LABS: Bacteria Not Seen /hpf; Squamous Epithelial Cells Not Seen /hpf (Few); White Blood Cells, Urine Not Seen /hpf (0-5)
[2022-07-29 01:14] LABS: U Amphetamine Screen Not Detected; U Barbituate Screen Not Detected; U Benzodiazapine Screen Not Detected; U Buprenorphine Screen Not Detected; U Cannabinoids Screen Not Detected; U Cocaine Screen Not Detected; U Methadone Screen Not Detected; U Methamphetamine Screen Not Detected; U Opiates Screen Not Detected; U Oxycodone Screen Not Detected; U Phencyclidine Screen Not Detected; U Propoxyphene Screen Not Detected
[2022-07-29 01:17] LABS: Ethanol (Alcohol), Blood, Med <3 mg/dL; Salicylate 4.7 mg/dL (2.8-20.0)
[2022-07-29 01:18] LABS: Acetaminophen, Random <2.0 ug/mL (10.0-30.0); Alanine Aminotransfer (ALT/SGP 10 U/L (12-78); Albumin, Blood 3.5 g/dL (3.4-5.0); Albumin/Globulin Ratio 1.1 (0.8-1.8); Alk Phos 86 U/L (50-136); Anion Gap 7 mmol/L (6-16); Aspartate Aminotrans (AST/SGOT 11 U/L (12-37); Bilirubin, Total 0.3 mg/dL (0.1-1.0); Blood Urea Nitrogen 20 mg/dL (8-24); Bun/Creatinine Ratio 25.8 (12.0-20.0); CO2, Blood 23 mmol/L (21-32); Calcium, Blood 8.7 mg/dL (8.5-10.1); Chloride, Blood 111 mmol/L (98-108); Creatinine, Blood 0.78 mg/dL (0.60-1.20); Globulin, Blood 3.1 g/dL (2.2-4.0); Glomerular Filtration Rate 98 (60-); Glucose, Blood 101 mg/dL (70-99); Potassium, Blood 4.2 mmol/L (3.5-5.5); Sodium, Blood 141 mmol/L (136-145); Total Protein, Blood 6.6 g/dL (6.4-8.2)
== END 2022-07-29 09:40 | disposition home or self-care (01) ==
LOC: ER 22:52
PROVIDERS: Student in an Organized Health Care Education/Training Program
DX: R07.9 Chest pain, unspecified (principal); R45.851 Suicidal ideations; L88 Pyoderma gangrenosum; G89.29 Other chronic pain; F17.210 Nicotine dependence, cigarettes, uncomplicated; Z88.2 Allergy status to sulfonamides; Z88.8 Allergy status to other drugs, medicaments and biological substances; Z88.5 Allergy status to narcotic agent; Z79.891 Long term (current) use of opiate analgesic
CPT/HCPCS: 36415; 71045; 80053; 81001; 84484; 85025; 93005; 93010; 96374; 99285-25; A9270; G0480; J1885

== ENCOUNTER 2023-04-30 10:12 | Emergency (ER) | payer MEDICARE, OTHER ==
[~2023-04-30] VITALS: Ht 167.6 cm; Wt 72.6 kg
[2023-04-30 10:20] VITALS: BP 156/98
[2023-04-30] MEDS ORDERED: ONDA4ODT MM (11:04)
[2023-04-30] MEDS ORDERED: BUPRENORPHINE HC8 MG SL (11:11)
[2023-04-30] MEDS ORDERED: IBU800 M1 PO (11:12)
[2023-05-01] MEDS ORDERED: TIZA4 PO (14:37)
== END 2023-04-30 11:10 | disposition home or self-care (01) ==
LOC: ER 10:12
DX: M54.2 Cervicalgia (principal); R11.2 Nausea with vomiting, unspecified; R19.7 Diarrhea, unspecified; Z88.2 Allergy status to sulfonamides; Z88.5 Allergy status to narcotic agent; Z88.8 Allergy status to other drugs, medicaments and biological substances; Z79.899 Other long term (current) drug therapy; Z79.891 Long term (current) use of opiate analgesic; F43.10 Post-traumatic stress disorder, unspecified; F17.210 Nicotine dependence, cigarettes, uncomplicated
CPT/HCPCS: 96374; 99283-25; A9270; J1885

== ENCOUNTER 2023-05-01 13:11 | Emergency (ER) | payer MEDICARE, OTHER ==
[~2023-05-01] VITALS: Ht 167.6 cm; Wt 73.5 kg
[~2023-05-01 13:11] MED LIST changes: +BUPRENORPHINE HC8 MG SL
[2023-05-01 13:28] VITALS: BP 145/90
[2023-05-01 13:54] LABS: BASOPHILS ABSOLUTE AUTO 0.08 K/mm3 (0.00-0.23); BASOPHILS PERCENT AUTO 1 % (0-2); EOSINOPHILS ABSOLUTE AUTO 0.21 K/mm3 (0.00-0.68); EOSINOPHILS PERCENT AUTO 3 % (0-6); Hematocrit 41.9 % (37.0-53.0); Hemoglobin 14.1 g/dL (13.5-17.5); IMMATURE GRAN ABSOLUTE AUTO 0.02 K/mm3 (0.00-0.10); IMMATURE GRAN PERCENT AUTO 0 % (0-1); LYMPHOCYTES PERCENT AUTO 19 % (21-46); MONOCYTES ABSOLUTE AUTO 0.52 K/mm3 (0.16-1.47); MONOCYTES PERCENT AUTO 8 % (4-13); Mean Corpuscular HGB 30.9 pg (26.0-34.0); Mean Corpuscular HGB Conc 33.7 g/dL (31.5-36.5); Mean Corpuscular Volume 92 fL (80-100); Mean Platelet Volume 9.7 fL (9.1-12.4); NEUTROPHILS ABSOLUTE AUTO 4.76 K/mm3 (1.96-9.15); NEUTROPHILS PERCENT AUTO 69 % (41-73); Platelet Count 246 K/mm3 (150-400); RDW Coefficient Variation 13.4 % (11.7-14.2); RDW Standard Deviation 45.9 fL (35.1-46.3); Red Blood Cell Count 4.56 M/mm3 (4.30-5.90); White Blood Cell Count 6.89 K/mm3 (4.00-11.30)
[2023-05-01 14:13] LABS: Albumin, Blood 3.9 g/dL (3.4-5.0); Albumin/Globulin Ratio 1.3 (0.8-1.8); Bilirubin, Total 0.3 mg/dL (0.1-1.0); Bun/Creatinine Ratio 34.5 (12.0-20.0); Calcium, Blood 8.8 mg/dL (8.5-10.1); Creatinine, Blood 0.67 mg/dL (0.60-1.20); Globulin, Blood 2.9 g/dL (2.2-4.0); Potassium, Blood 4.2 mmol/L (3.5-5.5); Total Protein, Blood 6.8 g/dL (6.4-8.2)
[2023-05-01] MEDS ORDERED: TIZA4 PO (14:37)
== END 2023-05-01 14:54 | disposition home or self-care (01) ==
LOC: ER 13:11
PROVIDERS: Student in an Organized Health Care Education/Training Program
DX: G89.29 Other chronic pain (principal); M25.511 Pain in right shoulder; M50.20 Other cervical disc displacement, unspecified cervical region; F17.210 Nicotine dependence, cigarettes, uncomplicated; Z88.2 Allergy status to sulfonamides; Z88.5 Allergy status to narcotic agent; Z88.8 Allergy status to other drugs, medicaments and biological substances
CPT/HCPCS: 80053; 83690; 85025; A9270; J2405

== ENCOUNTER 2023-05-04 12:08 | Emergency (ER) | payer MEDICARE, OTHER ==
[~2023-05-04] VITALS: Ht 167.6 cm; Wt 73.5 kg
[~2023-05-04 12:08] MED LIST changes: +TIZA4 PO
[2023-05-04 13:14] LABS: BASOPHILS ABSOLUTE AUTO 0.06 K/mm3 (0.00-0.23); BASOPHILS PERCENT AUTO 1 % (0-2); EOSINOPHILS ABSOLUTE AUTO 0.19 K/mm3 (0.00-0.68); EOSINOPHILS PERCENT AUTO 2 % (0-6); Hematocrit 42.2 % (37.0-53.0); Hemoglobin 14.2 g/dL (13.5-17.5); IMMATURE GRAN ABSOLUTE AUTO 0.02 K/mm3 (0.00-0.10); IMMATURE GRAN PERCENT AUTO 0 % (0-1); LYMPHOCYTES ABSOLUTE AUTO 1.33 K/mm3 (0.84-5.20); LYMPHOCYTES PERCENT AUTO 15 % (21-46); MONOCYTES ABSOLUTE AUTO 0.66 K/mm3 (0.16-1.47); MONOCYTES PERCENT AUTO 7 % (4-13); Mean Corpuscular HGB 31.3 pg (26.0-34.0); Mean Corpuscular HGB Conc 33.6 g/dL (31.5-36.5); Mean Corpuscular Volume 93 fL (80-100); Mean Platelet Volume 9.4 fL (9.1-12.4); NEUTROPHILS ABSOLUTE AUTO 6.94 K/mm3 (1.96-9.15); NEUTROPHILS PERCENT AUTO 75 % (41-73); Platelet Count 254 K/mm3 (150-400); RDW Coefficient Variation 13.3 % (11.7-14.2); RDW Standard Deviation 45.5 fL (35.1-46.3); Red Blood Cell Count 4.54 M/mm3 (4.30-5.90)
[2023-05-04 13:31] LABS: Albumin, Blood 3.8 g/dL (3.4-5.0); Albumin/Globulin Ratio 1.3 (0.8-1.8); Bilirubin, Total 0.4 mg/dL (0.1-1.0); Bun/Creatinine Ratio 22.1 (12.0-20.0); Calcium, Blood 8.9 mg/dL (8.5-10.1); Creatinine, Blood 0.63 mg/dL (0.60-1.20); Total Protein, Blood 6.8 g/dL (6.4-8.2)
[2023-05-04] MEDS ORDERED: ONDA4ODT MM (16:24)
[2023-05-04 16:25] VITALS: BP 177/105
== END 2023-05-04 16:44 | disposition home or self-care (01) ==
LOC: ER 12:08
PROVIDERS: Physician Assistant
DX: K52.9 Noninfective gastroenteritis and colitis, unspecified (principal); F17.210 Nicotine dependence, cigarettes, uncomplicated; Z88.2 Allergy status to sulfonamides; Z88.5 Allergy status to narcotic agent; Z88.8 Allergy status to other drugs, medicaments and biological substances
CPT/HCPCS: 80053; 83690; 85025; 96374; 99284-25; J2405

== ENCOUNTER 2023-09-27 16:10 | Emergency (ER) | payer MEDICARE, OTHER ==
[~2023-09-27] VITALS: Ht 170.2 cm; Wt 83.9 kg
[2023-09-27 16:37] VITALS: BP 158/107
[2023-09-27] MEDS ORDERED: Mobic15 MG PO (16:42)
== END 2023-09-27 17:34 | disposition home or self-care (01) ==
LOC: ER 16:10
DX: R52 Pain, unspecified (principal); Z76.0 Encounter for issue of repeat prescription; F43.10 Post-traumatic stress disorder, unspecified; M79.7 Fibromyalgia; F17.210 Nicotine dependence, cigarettes, uncomplicated; Z79.1 Long term (current) use of non-steroidal anti-inflammatories (NSAID); Z79.899 Other long term (current) drug therapy; Z88.2 Allergy status to sulfonamides; Z88.5 Allergy status to narcotic agent; Z88.8 Allergy status to other drugs, medicaments and biological substances
CPT/HCPCS: 96372; 99283-25; J1885

== ENCOUNTER 2025-01-02 11:48 | Emergency (ER) | payer MEDICARE ==
[~2025-01-02] VITALS: Ht 165.1 cm; Wt 81.7 kg
[~2025-01-02 11:48] MED LIST changes: +Aspir 8181 MG PO; +MASOPHEN325 M3; +MASOPHEN325 M4; +METOPROLOL TART25 MG; +Mobic15 MG PO; +NITR.4SL; +PREGABALIN75 MG PO
[2025-01-02 11:53] VITALS: BP 167/112
[2025-01-02] MEDS ORDERED: Ketorolac Tromethamine 30mg Vial IM ONE (12:00)
[2025-01-02] MEDS ORDERED: Cyclobenzaprine HCl 10 MG Tab PO ONE (12:00)
[2025-01-02] MEDS ORDERED: Methocarbamol 500 MG Tab PO ONE (12:05)
[2025-01-02] MEDS ORDERED: BUPROPION HCL PO (12:15)
[2025-01-02] MEDS ORDERED: LISI20 PO (12:16)
[2025-01-02] MEDS ORDERED: Voltaren100 GM TOP (13:01)
[2025-01-02] MEDS ORDERED: Robaxin750 MG PO (13:03)
== END 2025-01-02 13:05 | disposition home or self-care (01) ==
LOC: ER 11:48
DX: M54.50 Low back pain, unspecified (principal); G89.29 Other chronic pain; F43.10 Post-traumatic stress disorder, unspecified; F17.210 Nicotine dependence, cigarettes, uncomplicated
CPT/HCPCS: 96374; 99282; A9270; J1885

== ENCOUNTER 2025-01-29 11:33 | Emergency (ER) | payer MEDICARE ==
[~2025-01-29] VITALS: Ht 170.2 cm; Wt 73.5 kg
[2025-01-29 11:40] VITALS: BP 147/101
== END 2025-01-29 15:20 | disposition home or self-care (01) ==
LOC: ER 11:33
DX: M54.50 Low back pain, unspecified (principal); G89.29 Other chronic pain; F17.210 Nicotine dependence, cigarettes, uncomplicated; F43.10 Post-traumatic stress disorder, unspecified; Z79.899 Other long term (current) drug therapy; Z79.82 Long term (current) use of aspirin; Z88.2 Allergy status to sulfonamides; Z88.5 Allergy status to narcotic agent